=== PATIENT | female | born 1940 | race Caucasian/White ===

== ENCOUNTER 2017-05-25 14:29 | Emergency (ER) | payer OTHER ==
[~2017-05-25] VITALS: Ht 165.1 cm; Wt 70.3 kg
[2017-05-25 14:38] VITALS: BP 94/60
--- NOTE | 2017-05-25 14:48 | NUR ---
PT BIBA TO BED 8 AT THIS TIME.
[2017-05-25] MEDS ORDERED: ONDANSETRON 4 MG/2 ML VIAL IVP ONE (15:00)
[2017-05-25] MEDS ORDERED: NACL 0.9% 1,000 ML IV ONE (15:00)
--- NOTE | 2017-05-25 15:00 | NUR ---
PT BIBA FROM PCP S/P SEIZURE. HX RECENT HOSPITALIZATION FOR SUBARACHNOID HEMORRHAGE. HX OF HTN, SEIZURE DISORDER, HYPERLIPIDEMIA, HYPOTHYROIDISM.PT WAS VOMITTING WHEN SHE CAME TO ER;PT STATES " I FEEL WEAK" SKIN IS PINK/WARM/DRY; AAOX4 WITH EVEN AND STEADY GAIT; LUNGS CLEAR BL; HR EVEN AND REGULAR; PATIENT STATES PAIN OF 0/10 AT THIS TIME;PATIENT POSITIONED FOR COMFORT; HOB ELEVATED; BEDRAILS UP X2; BED DOWN.ALL MONITORS IN PLACED; ER MD MADE AWARE OF PT STATUS.
[2017-05-25] MEDS ORDERED: GABA300C1 PO (15:04)
[2017-05-25] MEDS ORDERED: LOSA100T1 PO ×2 (15:04→15:05)
[2017-05-25] MEDS ORDERED: FISH10005 PO (15:04)
[2017-05-25] MEDS ORDERED: ZOLP10TA1 PO (15:04)
[2017-05-25] MEDS ORDERED: FURO-570 PO (15:04)
[2017-05-25] MEDS ORDERED: ROSU10TA PO (15:04)
[2017-05-25] MEDS ORDERED: METO50TA68 PO (15:04)
[2017-05-25] MEDS ORDERED: LEVO0.124 PO (15:05)
[2017-05-25] MEDS ORDERED: ASPI81CT27 PO (15:05)
[2017-05-25] MEDS ORDERED: [UNRECOGNIZED DRUG - CODE] INH (15:05)
[2017-05-25] MEDS ORDERED: FEXO-8 PO (15:05)
[2017-05-25] MEDS ORDERED: ESCI20TA PO (15:05)
[2017-05-25] MEDS ORDERED: VITAMIN B6 PO (15:05)
[2017-05-25] MEDS ORDERED: CO Q 10 PO (15:05)
[2017-05-25] MEDS ORDERED: RANI-451 PO (15:05)
[2017-05-25] MEDS ORDERED: KEP500 PO (15:05)
[2017-05-25 15:32] LABS: HEMOGLOBIN 13.8 g/dL (12.0-16.0); NEUTROPHILS # (AUTO) 9.2 K/uL (1.8-7.7); RED CELL DISTRIBUTION WIDTH 12.7 % (11.6-13.7)
--- NOTE | 2017-05-25 15:38 | NUR ---
DR ANDREWS AT BEDSIDE.
[2017-05-25 15:47] LABS: BASOPHILS # (AUTO) 0.4 K/uL (0.00-0.22); EOSINOPHILS # (AUTO) 0.2 K/uL (0-0.4); LYMPHOCYTES # (AUTO) 1.2 K/uL (2.5-16.5); MEAN CORPUSCULAR HEMOGLOBIN 30 pg (27-31); MEAN CORPUSCULAR HGB CONC 33 g/dL (33-37); MEAN CORPUSCULAR VOLUME 91 fL (80-94); MONOCYTES # (AUTO) 0.7 K/uL (0.8-1.0); PLATELET COUNT (AUTO) 277 K/uL (140-450); RED BLOOD CELL COUNT(AUTO) 4.65 MIL/uL (4.20-5.40); WHITE BLOOD COUNT (AUTO) 11.7 K/uL (4.8-10.8)
[2017-05-25 15:50] LABS: ANION GAP 14.4 (8-16); CARBON DIOXIDE 25.4 mmol/L (21-32); CHLORIDE 106 mmol/L (98-107); CREATININE 1.4 mg/dL (0.6-1.3); GLUCOSE 111 mg/dL (74-106); POTASSIUM 3.8 mmol/L (3.5-5.1); SODIUM SERUM 142 mmol/L (136-145); UREA NITROGEN, BLOOD 20 mg/dL (7-18)
[2017-05-25 15:53] LABS: PROTHROMBIN TIME 10.7 secs (10.8-13.4)
[2017-05-25 15:55] LABS: ASPARTATE AMINOTRANSFERASE 29 U/L (15-37); TOTAL BILIRUBIN 0.4 mg/dL (0.0-1.0)
--- NOTE | 2017-05-25 16:22 | NUR ---
CALLED PHARMACY;INFORMED THEM THAT ER WANTS THE [facility] NOW;BECAUSE IT WAS ORDERED FOR 2100 AND 0900 HRS;DR ANDREWS SAID HE WILL CHANGE THE ORDER;
[2017-05-25] MEDS ORDERED: levETIRAcetam 1,000 MG in NACL 0.9% 100 ML IV ONE (16:25)
[2017-05-25] MEDS ORDERED: levETIRAcetam 1,000 MG in NACL 0.9% 100 ML IV SCH ×2 (16:25→21:00)
--- NOTE | 2017-05-25 17:59 | NUR ---
NS 290 ML WAS CONSUMED AT AROUND 1758.
[2017-05-25 18:00] VITALS: BP 140/67
--- NOTE | 2017-05-25 18:00 | NUR ---
Patient to be transferred to [facility]. Is being transferred due to HIGHER LEVEL OF CARE. Receiving facility has accepting physician and available space. ER physician has signed transfer form. Patient or responsible republican has agreed to transfer and signed form. Patient belongings inventoried and will be sent with patient. Copy of nursing notes, lab reports, EKG, Physicians Orders and X-rays to be sent with patient. Report called to BENJAMIN VASQUEZ at receiving facility.ambulance service has been called for transfer. ETA is 45 MINS.
== END 2017-05-25 18:00 | disposition short-term general hospital (02) ==
LOC: MED 14:29
DX: R56.9 Unspecified convulsions (principal); I72.9 Aneurysm of unspecified site; Z88.5 Allergy status to narcotic agent; Z88.8 Allergy status to other drugs, medicaments and biological substances
CPT/HCPCS: 36415; 70450; 80053; 85025; 85610; 85730; 96361; 96365; 96375; 99285; J1953; J2405; J7030

== ENCOUNTER 2022-08-28 14:38 | Emergency (ER) | payer BC, MEDICARE, OTHER ==
[~2022-08-28] VITALS: Ht 165.1 cm; Wt 81.6 kg
[~2022-08-28 14:38] MED LIST: ASPI81CT95 PO; CO Q 10 PO; ESCI20TA PO; FEXO-8 PO; FISH10005 PO; FURO-570 PO; GABA300C1 PO; KEP500 PO; LEVO0.124 PO; LOSA100T1 PO; METO-624 PO; RANI-553 PO; ROSU10TA1 PO; VITAMIN B6 PO; ZOLP10TA1 PO; [UNRECOGNIZED DRUG - CODE] INH
[2022-08-28 14:50] VITALS: BP 71/40
[2022-08-28] MEDS ORDERED: ACETAMINOPHEN EXTRA STRENGTH 500 MG TAB PO ONE (14:55)
--- NOTE | 2022-08-28 14:55 | NUR ---
82F BIBA from [employer] parking lot for mechanical trip and fall today. Pt reports walking through parking lot and tripping over a cement parking block, constant aching like 4/10 pain to both hands. Pt denies LOC or dizziness at time of fall. Laceration noted to posterior right hand, bleeding controlled, small abrasion noted to right eyebrow upon assessment. Pt changed into gown, placed on bedside monitor. BP 71/[address] upon [address] ED[address] Dr[address] Banks made aware.
[2022-08-28] MEDS ORDERED: NACL 0.9% 1,000 ML IV ONE ×2 (15:25→16:50)
[2022-08-28 15:46] LABS: BASOPHILS # (AUTO) 0.1 K/uL (0.00-0.22); EOSINOPHILS # (AUTO) 0.2 K/uL (0-0.4); EOSINOPHILS % (AUTO) 3.1 % (0.0-4.0); HEMATOCRIT 37.6 % (36-48); HEMOGLOBIN 12.4 g/dL (12.0-16.0); LYMPHOCYTES # (AUTO) 1.9 K/uL (2.5-16.5); LYMPHOCYTES % (AUTO) 27.1 % (20.5-51.1); MEAN CORPUSCULAR HEMOGLOBIN 31 pg (27-31); MEAN CORPUSCULAR HGB CONC 33 g/dL (33-37); MEAN CORPUSCULAR VOLUME 95.1 fL (80-94); MONOCYTES # (AUTO) 0.7 K/uL (0.8-1.0); MONOCYTES % (AUTO) 9.8 % (1.7-9.3); NEUTROPHILS # (AUTO) 4.1 K/uL (1.8-7.7); PLATELET COUNT (AUTO) 241 K/uL (140-450); RED BLOOD CELL COUNT(AUTO) 3.96 MIL/uL (4.20-5.40); RED CELL DISTRIBUTION WIDTH 13.5 % (11.6-13.7)
[2022-08-28] MEDS ORDERED: methylPREDNISolone SS 125 MG/2 ML VIAL IVP ONE (16:05)
[2022-08-28 16:52] LABS: ALBUMIN 3.6 g/dL (3.4-5.0); ANION GAP 10.7 (8-16); ASPARTATE AMINOTRANSFERASE 22 U/L (15-37); CHLORIDE 105 mmol/L (98-107); CREATININE 1.2 mg/dL (0.6-1.3); GLUCOSE 92 mg/dL (74-106); POTASSIUM 4.7 mmol/L (3.5-5.1); SODIUM SERUM 140 mmol/L (136-145); TOTAL BILIRUBIN 0.4 mg/dL (0.0-1.0); UREA NITROGEN, BLOOD 18 mg/dL (7-18)
--- NOTE | 2022-08-28 17:26 | NUR ---
pt swabbed for covid(miri). walked to lab
[2022-08-28] MEDS ORDERED: LIDOCAINE 1% 500 MG/ 50 ML VIAL INJ ONE (18:35)
--- NOTE | 2022-08-28 19:20 | NUR ---
Pt report given to BENJAMIN ROSALES. Transfer of care at this time.
--- NOTE | 2022-08-28 19:30 | NUR ---
ASSUMED CARE OF PT AT THIS TIME. PT IN POSITION OF COMFORT. NO S/S OF DISTRESS NOTED. DR. JURADO AT BEDSIDE TO NUMB RIGHT HAND FOR SUTURES. UPDATED PT ON POC WITH FULL RETURNED VERBAL UNDERSTANDING. AWAITING [facility] FOR POSSIBLE TRANSFER.
[2022-08-28] MEDS ORDERED: LIDOCAINE MPF 1% 10 ML ONE (20:02)
--- NOTE | 2022-08-28 20:05 | NUR ---
SUTURE SET UP DONT AT THIS TIME.
--- NOTE | 2022-08-28 20:29 | NUR ---
DR. JURADO AT BEDSIDE FOR PROCEDURE OF SUTURES. PT TOLERATING WELL. PT UPDATED ON POC. PT WILL BE GOING TO [facility]. WITH TELEVISION ANCHOR TIME AT 2100
--- NOTE | 2022-08-28 20:35 | NUR ---
REPORT CALLED TO ORALIA ALEXANDER WITH FULL RETURNED VERBAL UNDERSTANDING. AWAITING TRANSPORT AT THIS TIME.
[2022-08-28] MEDS ORDERED: IBUPROFEN 600 MG TAB PO ONE (20:50)
--- NOTE | 2022-08-28 21:00 | NUR ---
[facility] AT BEDSIDE
--- NOTE | 2022-08-28 21:01 | NUR ---
SMALL DRESSING APPLIED TO RIGHT HAND. PT TOLERATED WELL. REPORT TO EMS AT THIS TIME WITH FULL RETURNED VERBAL UNDERSTANDING.
--- NOTE | 2022-08-28 21:02 | NUR ---
[facility] LEFT FACILITY WITH PT FOR TRANSFER TO [facility]
[2022-08-28 21:09] VITALS: BP 136/72
== END 2022-08-28 21:02 | disposition short-term general hospital (02) ==
LOC: MED 14:38
DX: S61.411A Laceration without foreign body of right hand, initial encounter (principal); Z20.822 Contact with and (suspected) exposure to COVID-19; S00.93XA Contusion of unspecified part of head, initial encounter; I10 Essential (primary) hypertension; N18.9 Chronic kidney disease, unspecified; Z79.899 Other long term (current) drug therapy; W18.30XA Fall on same level, unspecified, initial encounter; Y93.89 Activity, other specified; Y92.89 Other specified places as the place of occurrence of the external cause; Y99.8 Other external cause status
CPT/HCPCS: 12002; 36415; 70450; 71045; 71250; 72125; 72170; 73110; 73501; 74176; 80053; 83605; 83880; 84443; 84484; 85025; 87040; 87426; 87804; 90471; 90715; 93005; 96361; 96374; 99285; J2001; J2930; J7030; Q0092